=== PATIENT | female | born 1980 | race African-American/Black ===

== ENCOUNTER 2020-03-27 13:28 | Inpatient (IN) | payer OTHER ==
[2020-03-27 14:56] LABS: EPI CELLS 31 /uL (0-25.1); HYALINE CASTS 1 /uL (0-3.1); PH,URINE 6.5 (5.0-8.0); URINE APPEARANCE CLEAR; URINE BACTERIA 1902 /uL (0-1359); URINE BILIRUBIN NEGATIVE (NEGATIVE); URINE COLOR YELLOW; URINE GLUCOSE (UA) NEGATIVE (NEGATIVE); URINE KETONE NEGATIVE (NEGATIVE); URINE LEUK ESTERASE TRACE (NEGATIVE); URINE NITRITE NEGATIVE (NEGATIVE); URINE PROTEIN NEGATIVE (NEGATIVE); URINE RBC 10 /uL (0-23.9); URINE UROBILINOGEN 0.2 mg/dL (0.2-1.0); URINE WBC 27 /uL (0-25.8)
[2020-03-27 16:13] VITALS: BMI 39.6
[2020-03-27] MEDS: ELECTROLYTE-148 SOLN 1,000 ML IV SCH ×2 (16:30→21:57)
[2020-03-27 17:16] LABS: BASO % 0.4 % (0-2.0); EOS % 1.2 % (0-4.5); HEMATOCRIT 32.6 % (32.4-45.2); HEMOGLOBIN 10.8 GM/dL (10.7-15.3); LYMPH % 14.3 % (8-40); MCH 29.9 pg (25.7-33.7); MCHC 33.1 g/dl (32.0-36.0); MEAN CELL VOLUME 90.5 fl (80-96); MEAN PLT VOLUME 7.7 fl (7.5-11.1); NEUT % 78.1 % (42.8-82.8); PLATELET COUNT 332 K/MM3 (134-434); RDW 14.8 % (11.6-15.6); WHITE BLOOD COUNT 10.2 K/mm3 (4.0-10.0)
[2020-03-27 17:18] LABS: RETICULOCYTES 2.01 % (0.5-1.5)
[2020-03-27] MEDS ORDERED: DINOPROSTONE 10 MG VAGINAL SUPPOSITORY VG ONE (17:19)
--- NOTE | 2020-03-27 17:19 | HP ---
Past Medical History - Admission Chief Complaint: chronic hypertension at 37 weeks for induction of labor History Source: Patient Limitations to Obtaining History: No Limitations - Past Medical History ...: 5 ...Para: 4 ...Term: 3 ...: 1 ...Spon : 0 ...Induced : 0 ...Living Children: 4 ...Multiple Gestation: 0 ...LMP: 07/07/19 ... Weeks Gestation by Dates: 37.5 ...EDC by Dates: 04/12/20 ...EDC by Sono: 04/12/20 - Past Surgical History Past Surgical History: Yes: None Hx Myomectomy: No Hx Transabdominal Cerclage: No - Smoking History Smoking history: Never smoked Have you smoked in the past 12 months: No - Alcohol/Substance Use Hx Alcohol Use: No Home Medications - Allergies Allergies/Adverse Reactions: Allergies Allergy/AdvReac Type Severity Reaction Status Date / Time No Known Allergies Allergy Verified 03/27/20 15:57 - Home Medications Home Medications: Ambulatory Orders Aspirin [ASA -] 81 mg PO DAILY 03/27/20 Labetalol HCl [Normodyne -] 200 mg PO BID 03/27/20 Vitamins (Sjr) - 1 tab PO DAILY 03/27/20 Physical Exam - Maternity Vital Signs: Vital Signs Temperature 98.2 F 03/27/20 16:00 Pulse Rate 82 03/27/20 16:00 Respiratory Rate 18 03/27/20 16:00 Blood Pressure 149/87 03/27/20 16:00 O2 Sat by Pulse Oximetry (%) Constitutional: Yes: Well Nourished Eyes: Yes: WNL HENT: Yes: WNL Neck: Yes: WNL Cardiovascular: Yes: WNL Lungs: Normal air movement - Abdominal Exam/OB Number of Fetuses: Single Presentation: Vertex Contractions: Yes Regularity: Irregular Intensity: Unaware Monitor Mode: External Category: I Accelerations: Uniform Decelerations: None - Vaginal Exam/OB Vaginal Bleeding: No Speculum Exam: No Dilatation (cm): 2cm Effacement (%): 30 Amniotic Membrane Status: Intact Presentation: Vertex/Position Station: -2 - Physical Exam Edema: No Problem List - Problems (1) 37 weeks gestation of Code(s): Z3A.37 - 37 WEEKS GESTATION OF (2) Chronic hypertension affecting Code(s): O10.919 - UNSP PRE-EXISTING HTN COMP , UNSP TRIMESTER Assessment/Plan patient received care by Dr Segura/ [place] and sent here for induction of labor, had non reactive NST today chronic HTN on Labetalol cervidil placed
[2020-03-27 17:24] LABS: INR 0.93 (0.83-1.09)
[2020-03-27 17:26] LABS: ACTIVATED PTT 27.4 SECONDS (25.2-36.5)
[2020-03-27 17:40] LABS: GAMMA GLUTAMYL TRANSPEPTIDASE 15 U/L (5-85); SGOT/AST 22 U/L (15-37); SGPT/ALT 26 U/L (13-61)
[2020-03-27 17:43] LABS: ALBUMIN 2.9 g/dl (3.4-5.0); BILIRUBIN,TOTAL 0.4 mg/dL (0.2-1); BLOOD UREA NITROGEN 12.7 mg/dL (7-18); CALCIUM 9.1 mg/dL (8.5-10.1); CREATININE 0.6 mg/dL (0.55-1.3); POTASSIUM 4.1 mmol/L (3.5-5.1); TOT PROT 6.7 g/dl (6.4-8.2); URIC ACID 4.6 mg/dL (2.6-7.2)
--- NOTE | 2020-03-27 21:48 | PN ---
Progress Note (short form) - Note Progress Note: patient had 2 deceleration in a 150 minutes span; good recovery baseline= 140/ mod variability/ acc/ irregular contractions cervix= 3-4 cm/ 60%/ -[address] I/P: continue STEPH Problem List - Problems (1) 37 weeks gestation of Code(s): Z3A.37 - 37 WEEKS GESTATION OF (2) Chronic hypertension affecting Code(s): O10.919 - UNSP PRE-EXISTING HTN COMP , UNSP TRIMESTER
[2020-03-27] MEDS: LABETALOL HCL 200 MG TABLET (FP) PO SCH (22:00)
[2020-03-28] MEDS ORDERED: LABETALOL HCL 200 MG TABLET (FP) ONE (00:48)
[2020-03-28] MEDS ORDERED: BUTORPHANOL TARTRATE 2 MG/ML VIAL ONE ×2 (01:10→12:25)
[2020-03-28] MEDS ORDERED: PROMETHAZINE HCL 25 MG/1 ML VIAL ONE ×2 (01:10→12:25)
[2020-03-28] MEDS ORDERED: PROMETHAZINE HCL 25 MG/1 ML VIAL IVPB ONE ×2 (01:15→18:06)
[2020-03-28] MEDS ORDERED: BUTORPHANOL TARTRATE 2 MG/ML VIAL IVPB ONE (01:15)
[2020-03-28] MEDS: ELECTROLYTE-148 SOLN 1,000 ML IV SCH ×3 (04:30→21:03)
[2020-03-28] MEDS ORDERED: OXYTOCIN 30 UNITS in 0.9% NS 30 UNIT/500 ML INFUS.BAG IVPB ONE (09:27)
--- NOTE | 2020-03-28 09:39 | PN ---
Progress Note (short form) - Note Progress Note: pt. c/o some contraction pain. vss - BP 120s/60s fhr: 130, mod variability. occas decel w recovery to baseline. toco. uc's irreg ve: multip os 3 50 / -3 a/p iup at term chr htn admitted for iol s/p cervidil will start pitocin augmentation hold labetalol as BP has been in low range
[2020-03-28] MEDS ORDERED: OXYTOCIN 30 UNITS in 0.9% NS 30 UNIT/500 ML INFUS.BAG IVPB SCH (09:45)
[2020-03-28] MEDS: LABETALOL HCL 200 MG TABLET (FP) PO SCH ×2 (10:19→21:33)
--- NOTE | 2020-03-28 15:17 | PN ---
Progress Note (short form) - Note Progress Note: pt. w some relief from analgesia. declined epidural. vss fhr: 130. variability dec after meds, but still moderate intermittently. rare decel toco: uc's becoming more regular on Pit at 9 ve: def a/p iup at term chr htn iol now on pitocin cont. close monitoring. anti htn meds held due low range BP (and few accompanying late decels) will consider arom next exam. efw 6lb 11oz on sono yest. pelv seems adequate clinically
--- NOTE | 2020-03-28 17:01 | PN ---
Progress Note (short form) - Note Progress Note: pt without complaints. vss - af fhr: 135. min to mod variability, no decels toco: uc's q 3 -6 ve: inspection of perineum and vagina: no lesions / -2 arom clear a/p iup at 37 + wks chr htn iol ? hx hsv 2 per chart pt. states has never had and that it is an error in her chart that she d/w prior doctors, included PMD. and has had 2 nsvds since that incorrect (per pt) dx several years ago. not on Valtrex. reviewed implications if genital hsv present and vaginal delivery. pt states understand and appreciative of the discussion, chart review and inspection, but reiterates has never had and would like the record to indicate as such.
[2020-03-28] MEDS ORDERED: OXYTOCIN 20 UNITS in 0.9% NS 20 UNIT/1,000 ML INFUS.BAG IV ONE ×2 (17:54→19:30)
[2020-03-28] MEDS ORDERED: BUTORPHANOL TARTRATE 1 MG/ML VIAL IVPB ONE (18:06)
[2020-03-28] MEDS ORDERED: WITCH HAZEL 50% (TUCKS) 40 PAD/JAR PAD TP PRN (18:13)
--- NOTE | 2020-03-28 18:13 | PN ---
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
[2020-03-28] MEDS ORDERED: OXYTOCIN 20 UNITS in 0.9% NS 20 UNIT/1,000 ML INFUS.BAG IV SCH (18:15)
[2020-03-28] MEDS ORDERED: LABETALOL HCL 200 MG TABLET (FP) PO ONE (18:37)
[2020-03-28] MEDS ORDERED: oxyCODONE HCL 5 MG TABLET ONE (18:43)
[2020-03-28] MEDS ORDERED: ACETAMINOPHEN 325 MG TABLET (FP) ONE (18:43)
[2020-03-28] MEDS ORDERED: oxyCODONE HCL 5 MG TABLET PO ONE (18:45)
[2020-03-28] MEDS ORDERED: ACETAMINOPHEN 325 MG TABLET (FP) PO ONE (18:45)
[2020-03-28] MEDS: ACETAMINOPHEN 325 MG TABLET (FP) PO PRN (21:32)
[2020-03-28] MEDS: IBUPROFEN 600 MG TABLET (FP) PO PRN (21:32)
[2020-03-28] MEDS ORDERED: DIPHTH,PERTUSS(ACELL),TET 0.5 ML DISP.SYRIN IM ONE (21:36)
[2020-03-29] MEDS: ACETAMINOPHEN 325 MG TABLET (FP) PO PRN ×2 (06:46→22:29)
[2020-03-29] MEDS: IBUPROFEN 600 MG TABLET (FP) PO PRN ×2 (06:47→22:30)
[2020-03-29 08:17] LABS: BASO % 0.4 % (0-2.0); EOS % 1.6 % (0-4.5); HEMATOCRIT 29.1 % (32.4-45.2); HEMOGLOBIN 9.6 GM/dL (10.7-15.3); LYMPH % 16.3 % (8-40); MCH 30.3 pg (25.7-33.7); MCHC 33.1 g/dl (32.0-36.0); MEAN CELL VOLUME 91.8 fl (80-96); MEAN PLT VOLUME 7.4 fl (7.5-11.1); MONO % 4.7 % (3.8-10.2); PLATELET COUNT 297 K/MM3 (134-434); RBC 3.17 M/mm3 (3.60-5.2); RDW 14.7 % (11.6-15.6)
[2020-03-29 08:45] LABS: POC NITRAZINE NEG
[2020-03-29] MEDS: LABETALOL HCL 200 MG TABLET (FP) PO SCH ×2 (09:47→21:05)
[2020-03-29] MEDS ORDERED: FLU VACCINE (FLULAVAL) PF 60 MCG/0.5 ML SYRINGE 2020-2021 IM ONE (10:00)
--- NOTE | 2020-03-29 10:14 | PN ---
Post Progress Note - Subjective Subjective: denies any complains voiding ok mod bleeding no pain Post Day: 1 Type of Delivery: Vital Signs: Vital Signs Temperature 98.7 F 03/29/20 08:00 Pulse Rate 83 03/29/20 08:00 Respiratory Rate 19 03/29/20 08:00 Blood Pressure 110/62 03/29/20 08:00 O2 Sat by Pulse Oximetry (%) 100 03/29/20 08:00 Breast Exam: Yes: Soft Uterus: Yes: Fundus Firm Lochia: Yes: Rubra Lochia, amount: Moderate Extremities: Yes: Calves non-tender Perineum: Yes: Intact (Patient desires circumcision for baby, baby not cleared by equipment records supervisor yet) - Labs Labs: CBC WBC 10.0 K/mm3 (4.0-10.0) 03/29/20 07:50 RBC 3.17 M/mm3 (3.60-5.2) L 03/29/20 07:50 Hgb 9.6 GM/dL (10.7-15.3) L 03/29/20 07:50 Hct 29.1 % (32.4-45.2) L 03/29/20 07:50 MCV 91.8 fl (80-96) 03/29/20 07:50 MCH 30.3 pg (25.7-33.7) 03/29/20 07:50 MCHC 33.1 g/dl (32.0-36.0) 03/29/20 07:50 RDW 14.7 % (11.6-15.6) 03/29/20 07:50 Plt Count 297 K/MM3 (134-434) 03/29/20 07:50 MPV 7.4 fl (7.5-11.1) L 03/29/20 07:50 Absolute Neuts (auto) 7.7 K/mm3 (1.5-8.0) 03/29/20 07:50 Neutrophils % 77.0 % (42.8-82.8) 03/29/20 07:50 Lymphocytes % 16.3 % (8-40) 03/29/20 07:50 Monocytes % 4.7 % (3.8-10.2) 03/29/20 07:50 Eosinophils % 1.6 % (0-4.5) 03/29/20 07:50 Basophils % 0.4 % (0-2.0) 03/29/20 07:50 Nucleated RBC % 0 % (0-0) 03/29/20 07:50 Retic Count 2.01 % (0.5-1.5) H 03/27/20 16:00 Haptoglobin 154 mg/dL (33-278) 03/27/20 16:00 Assessment/Plan 39 year old now P5 s/p over intact perieum Discharge tomorrow in AM
[2020-03-29] MEDS ORDERED: BISACODYL 10 MG SUPP.RECT PR PRN (21:01)
[2020-03-29 22:16] VITALS: TEMP 98.9
[2020-03-30] MEDS: LABETALOL HCL 200 MG TABLET (FP) PO SCH (10:52)
--- NOTE | 2020-03-30 11:04 | DS ---
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: Vital Signs Temperature 98.9 F 03/29/20 22:00 Pulse Rate 76 03/29/20 22:00 Respiratory Rate 18 03/29/20 22:00 Blood Pressure 147/86 03/29/20 22:00 O2 Sat by Pulse Oximetry (%) 98 03/29/20 22:00 Constitutional: Yes: Well Nourished, No Distress, Calm Eyes: Yes: WNL, Conjunctiva Clear, EOM Intact HENT: Yes: WNL, Atraumatic, Normocephalic Neck: Yes: WNL, Supple, Trachea Midline Cardiovascular: Yes: WNL, Regular Rate and Rhythm Respiratory: Yes: WNL, Regular, CTA Bilaterally Gastrointestinal: Yes: WNL ...Rectal Exam: Yes: WNL Renal/: Yes: WNL Breast(s): Yes: WNL Musculoskeletal: Yes: WNL Extremities: Yes: WNL Integumentary: Yes: WNL Neurological: Yes: WNL, Alert, Oriented ...Motor Strength: WNL Psychiatric: Yes: WNL, Alert, Oriented Labs: CBC, BMP 03/29/20 07:50 03/27/20 16:00 Delivery - Delivery Vaginal Delivery: No Problems Type of Anesthesia: None Episiotomy/Laceration: None EBL (cc): 200 Delivery, Single - Stages of Labor Date 1st Stage Initiatied: 03/28/20 Time 1st Stage Initiated: 00:30 Date 2nd Stage Initiated: 03/28/20 Time 2nd Stage Initiated: 17:45 Date of Delivery: 03/28/20 Time of Delivery: 17:48 Time Placenta Delivered: 17:55 Placenta: Yes: Spontaneous - 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 Present: [place]: Shandra Tate Infant Gender: Male Weight: 2.693 kg Position: Right, OA Total Hours ROM (Hrs/Mins): 1hr/15mins - 1 Minute Total Score: 9 5 Minutes Total Score: 9 - Feeding Plan Initial Plan: Exclusive throughout hospitalization Discharge Summary Problems reviewed: Yes Reason For Visit: INDUCTION OF LABOR Current Active Problems 37 weeks gestation of (Acute) Chronic hypertension affecting (Acute) (normal spontaneous vaginal delivery) (Acute) Procedures: Principal: delivery Hospital Course: non complicated Plan of Treatment: [facility] Condition: Good - Instructions Disposition: HOME - Home Medications Comprehensive Discharge Medication List: Ambulatory Orders Aspirin [ASA -] 81 mg PO DAILY 03/27/20 Labetalol HCl [Normodyne -] 200 mg PO BID 03/27/20 Vitamins (Sjr) - 1 tab PO DAILY 03/27/20
[2020-03-30 16:15] VITALS: BP 128/81; PULSE 96
--- NOTE | 2020-04-03 18:36 | PATH ---
Surgical Pathology Report Patient Name: SUDHA NATARAJAN Med. Rec. 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 Specimen(s) Received PLACENTA Clinical History , 37.6 weeks Final Diagnosis PLACENTA, DELIVERY: 328 G THIRD TRIMESTER PLACENTA WITH TRIVASCULAR UMBILICAL CORD AND UNREMARKABLE PLACENTAL MEMBRANES. Electronically Signed Kinza Richards M.D. Gross Description The specimen is received fresh labeled placenta and is a 328 gram, 19.0 x 15.0 x 1.8 cm. placenta with attached membranes and umbilical cord. The attached membranes are martin, translucent with focal opacities and insert marginally. The umbilical cord measures 24 cm. in length and averages 0.9 cm. in diameter. The cord inserts eccentrically, 1 cm. to the nearest margin. No true knots or strictures are identified. Cut surface of the umbilical cord reveals 3 vessels. The surface is atkinson-blue with minimal fibrin deposition and appropriate caliber vessels. The maternal surface is red-brown with focal defects. Sectioning reveals red-brown, spongy parenchyma. No lesions are identified. 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 03/31/2020 saudi03/31/2020
== END 2020-03-30 15:30 | disposition home or self-care (01) | DRG 560 ==
LOC: JLDR 13:28 → J3W 03-28 19:55
PROVIDERS: ADMIT Obstetrics & Gynecology; ATTEND Obstetrics & Gynecology
PROC: 3E0P7VZ Introduction of Hormone into Female Reproductive, Via Natural or Artificial Opening (ICD-10-PCS; 2020-03-27)
PROC: 10E0XZZ Delivery of Products of Conception, External Approach (ICD-10-PCS; principal; 2020-03-28)
DX: O10.92 Unspecified pre-existing hypertension complicating childbirth (principal); Z3A.37 37 weeks gestation of pregnancy; Z37.0 Single live birth
CPT/HCPCS: 36415; 59409; 80053; 81003; 82977; 83010; 83986-QW; 84450; 84460; 84550; 85025; 85032; 85045; 85610; 85730; 86780; 86850; 86900; 86901; 88307-TC; 90715; G0008; Q2036; U0003